=== PATIENT | female | born 1990 | race American Indian/Alaskan Native ===

== ENCOUNTER 2016-12-07 17:12 | Emergency (ER) | payer BC, MEDICAID ==
[2016-12-07] MEDS ORDERED: Sodium Chloride 0.9% 1,000 ML IV SCH (17:45)
--- NOTE | 2016-12-07 17:57 | C.PDOC ---
History Of Present Illness 26 y/o female presents to the ED with complaints of intermittent lower abdominal pain since last night. Pain has mildly improved since last night, but pain persisted today. Patient reports last bowel movement 1 day ago, was smaller than usual. Denies fever, chills, nausea, vomiting, diarrhea, vaginal pain/discharge, urinary symptoms or any other complaints. Pt states her menses is 2 days late, but denies suspicion of . PSHx appendectomy. Time Seen by Provider: 12/07/16 17:23 Chief Complaint (Nursing): Abdominal Pain History Per: Patient History/Exam Limitations: no limitations Onset/Duration Of Symptoms: Hrs, Intermittent Episodes Current Symptoms Are (Timing): Better Severity: Moderate Location Of Pain/Discomfort: RLQ, LLQ Radiation Of Pain To:: None Quality Of Discomfort: "Pain" Associated Symptoms: denies: Fever, Chills, Nausea, Vomiting, Diarrhea, Urinary Symptoms Exacerbating Factors: None Alleviating Factors: None Last Bowel Movement: Yesterday Recent travel outside of the [place]: No Abnormal Vaginal Bleeding: No Past Medical History Reviewed: Historical Data, Nursing Documentation, Vital Signs Vital Signs: Last Vital Signs Temp 98.6 F 12/07/16 17:18 Pulse 102 H 12/07/16 17:18 Resp 18 12/07/16 17:18 BP 121/73 12/07/16 17:18 Pulse Ox 97 12/07/16 18:38 - Medical History PMH: No Chronic Diseases Surgical History: Appendectomy - [facility] Procedures OTHER SKIN & SUBQ I D (01/18/14) Family History: States: Unknown Family Hx - Social History Hx Tobacco Use: No Hx Alcohol Use: No Hx Substance Use: No - Immunization History Hx Tetanus Toxoid Vaccination: No Hx Influenza Vaccination: Yes Hx Pneumococcal Vaccination: No Review Of Systems Constitutional: Negative for: Fever, Chills Cardiovascular: Negative for: Chest Pain Respiratory: Negative for: Cough, Shortness of Breath Gastrointestinal: Positive for: Abdominal Pain. Negative for: Nausea, Vomiting , Diarrhea Genitourinary: Negative for: Dysuria, Hematuria, Vaginal Discharge Musculoskeletal: Negative for: Back Pain Neurological: Negative for: Headache, Dizziness Physical Exam - Physical Exam Appears: Non-toxic, No Acute Distress Skin: Warm, Dry, No Rash Head: Atraumatic, Normacephalic Eye(s): bilateral: Normal Inspection Neck: Normal, Normal ROM, Supple Chest: Symmetrical Cardiovascular: Rhythm Regular, No Murmur Respiratory: Normal Breath Sounds, No Rales, No Rhonchi, No Wheezing Gastrointestinal/Abdominal: Bowel Sounds, Soft, Tenderness (bilateral lower abdominal tenderness), No Distention, No Guarding, No Rebound Back: Normal Inspection, No CVA Tenderness, No Vertebral Tenderness, No Paraspinal Tenderness Extremity: Bilateral: Atraumatic, Normal Color And Temperature, Normal ROM Neurological/Psych: Oriented x3, Normal Speech Gait: Steady ED Course And Treatment - Laboratory Results Result Diagrams: 12/07/16 18:07 12/07/16 18:07 O2 Sat by Pulse Oximetry: 97 (room air) Pulse Ox Interpretation: Normal Medical Decision Making Medical Decision Making: Impression: Lower abdominal pain Plan: * labs * UA * XR abdomen * IV fluids * tylenol Progress: POC was negative. XRay ordered Labs reviewed and unremarkable, no leukocytosis or electrolyte abnormality, no UTI XRay shows moderate fecal retention, no obstruction Upon reevaluation patient resting in bed in no acute distress. Vital signs stable. Abdomen is soft without guarding or peritoneal signs or signs of surgical patholgy. Patient feels comfortable going home and will be discharged. Patient given follow up instructions. Instructed to return to ER if symptoms worsen or new symptoms arise. Disposition Counseled Patient/Family Regarding: Studies Performed, Diagnosis, Need For Followup - Disposition Referrals: [facility] [Outside] [facility] [Outside] [facility] [Outside] Disposition: HOME/ ROUTINE Disposition Time: 18:58 Condition: STABLE Additional Instructions: Your labs and XRay were normal. Xray shows constipation Please follow up with your primary doctor or clinic for further evaluation Take Tylenol or Advil as needed for pain Return to hospital for any worsening symptoms or concern Prescriptions: Docusate [Colace] 100 mg PO Q8 #30 cap Magnesium Citrate [Citrate of Mag] 300 ml PO ONCE #1 bottle Instructions: Abdominal Pain (ED) - POA Present On Arrival: None - Clinical Impression Clinical Impression: Lower abdominal pain, Constipation - PA / GRADUATE ENGINEER / Resident Statement MD/DO has reviewed & agrees with the documentation as recorded. - Scribe Statement The provider has reviewed the documentation as recorded by the Danielibkristina Pandya All medical record entries made by the Henrique were at my direction and personally dictated by me. I have reviewed the chart and agree that the record accurately reflects my personal performance of the history, physical exam, medical decision making, and the department course for this patient. I have also personally directed, reviewed, and agree with the discharge instructions and disposition.
[2016-12-07 18:02] LABS: HCG,QUALITATIVE URINE NEGATIVE (NEGATIVE); SQUAMOUS EPITHIAL 7 /hpf (0-5); URINE BILIRUBIN NEGATIVE (NEGATIVE); URINE BLOOD NEGATIVE (NEGATIVE); URINE CLARITY Clear (Clear); URINE COLOR Yellow (YELLOW); URINE GLUCOSE (UA) NORMAL (Normal); URINE LEUKOCYTE ESTERASE NEG Leu/uL (Negative); URINE NITRATE NEGATIVE (NEGATIVE); URINE PROTEIN NEGATIVE (NEGATIVE); URINE UROBILINOGEN NORMAL mg/dL (0.2-1.0)
[2016-12-07] MEDS ORDERED: Sodium Chloride 0.9% 1,000 ML ONE (18:09)
[2016-12-07 18:10] LABS: BASO % 0.3 % (0.0-2.0); EOS % 0.3 % (0.0-4.0); HEMOGLOBIN 11.6 g/dL (11.0-16.0); LYMPH # 2.5 K/uL (1.0-4.3); MEAN CELL VOLUME 87.7 fL (81.0-99.0); MEAN CORPUSCULAR HEMOGLOBIN 28.8 pg (27.0-31.0); MEAN CORPUSCULAR HGB CONC 32.8 g/dL (33.0-37.0); MEAN PLATELET VOLUME 9.7 fL (7.2-11.7); MONO # 0.8 K/uL (0.0-0.8); MONO % 8.1 % (0.0-10.0); NEUT # 6.7 K/uL (1.8-7.0); NEUT % 66.3 % (50.0-75.0); RBC 4.05 Mil/uL (3.80-5.20); RED CELL DISTRIBUTION WIDTH 13.8 % (11.5-14.5); WHITE BLOOD COUNT 10.1 K/uL (4.8-10.8)
[2016-12-07 18:18] LABS: ALBUMIN 3.6 g/dL (3.5-5.0)
[2016-12-07 18:20] LABS: GFR AFRICAN-AMERICAN > 60; GFR NON-AFRICAN AMERICAN > 60
[2016-12-07 18:21] LABS: ALB/GLOB RATIO 1.2 (1.0-2.1); ALT/SGPT 18 U/L (9-52); AST/SGOT 17 U/L (14-36); BLOOD UREA NITROGEN 7 mg/dL (7-17)
[2016-12-07 18:22] LABS: CALCIUM 8.6 mg/dl (8.6-10.4); LIPASE 69 U/L (23-300)
[2016-12-07 19:25] VITALS: BP 100/63; PULSE 90; RESP 20; TEMP 98.3; O2SAT 100
--- NOTE | 2016-12-08 10:59 | RAD ---
Abdomen three views History: Constipation. Comparison: None available. Findings: Mild venous congestion. Heart size within normal limits. Moderate fecal retention in the colon. Relative paucity of small bowel gas. Degenerative changes in the spine and shoulders. Suggestion of a surgical clip in the right lower abdomen. Impression: Moderate fecal retention in the colon.
== END 2016-12-07 19:15 | disposition home or self-care (01) ==
LOC: C.ER 17:12
DX: K59.00 Constipation, unspecified (principal)
CPT/HCPCS: 74022; 80053; 81001; 83690; 84703; 85025; 96360; 99285; J7040